=== PATIENT | female | born 1975 | race Caucasian/White ===

== ENCOUNTER 2019-05-23 16:54 | Inpatient (IN) | payer BC ==
[~2019-05-23] VITALS: Ht 160 cm; Wt 75.3 kg
[2019-05-23 17:08] VITALS: BP_SYST 101
--- NOTE | 2019-05-23 17:17 | NUR ---
Patient triaged and placed in waiting room. VSS and patient appears in no acute distress at this time. Accompanied by , awaiting available bed, and MD notified of need for MSE.
--- NOTE | 2019-05-23 21:08 | NUR ---
Patient to ER CHAIR to gown for evaluation. Side rails up. Report given to SINAN HICKEY.
--- NOTE | 2019-05-23 21:10 | NUR ---
Patient complains of left breast pain since March and has seen her OBGYN for it and was prescribed antibiotics but none seem to work. Pt complains that anish is still in pain and the last two days she has "noticed white creamy discharge." Pt also states she had a fever yesterday and this morning. Pt also complains of low back pain and bilateral heel pain. NO other injuries/complaints per patient or noted.
--- NOTE | 2019-05-23 21:22 | NUR ---
ER Dr. Barnes at bedside examining patient.
[2019-05-23] MEDS ORDERED: KETOROLAC TROMETHAMINE 30 MG VIAL IVP ONE (21:30)
--- NOTE | 2019-05-23 21:38 | NUR ---
Per Dr. Barnes, hold Toradol.
--- NOTE | 2019-05-23 21:43 | NUR ---
Patient was moved to Bed 8. Gowned and side rails up.
[2019-05-23 21:47] LABS: BILIRUBIN,URINE NEGATIVE (NEGATIVE); COLOR,URINE YELLOW (YELLOW); GLUCOSE,URINE NEGATIVE (NEGATIVE); KETONES,URINE NEGATIVE (NEGATIVE); LEUKOCYTE ESTERASE ,URINE TRACE (NEGATIVE); NITRITE, URINE NEGATIVE (NEGATIVE); PROTEIN URINE NEGATIVE (NEGATIVE); UROBILINOGEN,URINE 0.2 (0.2-1.0)
[2019-05-23 21:59] LABS: BLOOD, URINE TRACE (NEGATIVE); CLARITY/URINE SLIGHTLY HAZY (CLEAR)
[2019-05-23 21:59] LABS: BASOPHILS # (AUTO) 0.1 K/uL (0.0-0.2); BASOPHILS % (AUTO) 0.5 % (0.0-2.0); EOSINOPHILS # (AUTO) 0.2 K/uL (0.0-0.4); EOSINOPHILS % (AUTO) 1.3 % (0.0-4.0); HEMATOCRIT 37.3 % (36-48); HEMOGLOBIN 12.1 g/dL (12.0-16.0); LYMPHOCYTES # (AUTO) 2.8 K/uL (1.0-5.5); LYMPHOCYTES % (AUTO) 18.8 % (20.5-51.5); MEAN CORPUSCULAR HEMOGLOBIN 27 pg (27-31); MEAN CORPUSCULAR HGB CONC 33 % (32-36); MEAN CORPUSCULAR VOLUME 82 fL (79.0-98.0); MONOCYTES # (AUTO) 1.2 K/uL (0.0-1.0); MONOCYTES % (AUTO) 7.8 % (1.7-9.3); NEUTROPHILS # (AUTO) 10.7 K/uL (1.8-7.7); NEUTROPHILS % (AUTO) 71.6 % (40.0-70.0); PLATELET COUNT (AUTO) 365 K/uL (130-430); RED BLOOD CELL COUNT(AUTO) 4.54 MIL/uL (4.2-6.2); RED CELL DISTRIBUTION WIDTH 13.7 % (9.0-15.0)
[2019-05-23 22:04] LABS: BACTERIA,URINE FEW /HPF (None Seen); RBC,URINE 0-3 /HPF (0-3)
[2019-05-23 22:05] LABS: MUCUS,URINE 2+ /LPF (None Seen)
[2019-05-23 22:14] LABS: CALCIUM 8.7 mg/dL (8.4-11.0); CREATININE 0.61 mg/dL (0.55-1.30); POTASSIUM 3.8 mmol/L (3.5-5.1)
--- NOTE | 2019-05-23 22:24 | NUR ---
Dr. Hdz at bedside with Deangelo Russell as general ii farmworker.
[2019-05-23 22:40] LABS: ALBUMIN 3.4 g/dL (3.4-4.8); TOTAL BILIRUBIN 0.6 mg/dL (0.0-1.0)
[2019-05-23] MEDS ORDERED: metroNIDAZOLE 500 mg/NS 100 ML IV ONE (23:15)
[2019-05-23] MEDS ORDERED: PIPERACILLIN/TAZO 3.375 GM in NS 50 ML IV ONE (23:15)
[2019-05-23] MEDS ORDERED: PIPERACILLIN/TAZOBACTAM 3.375 GM/VIAL (ZOSYN) IV ONE (23:30)
[2019-05-23] MEDS ORDERED: CLIN300C11 PO (23:42)
[2019-05-23] MEDS ORDERED: METR500T PO (23:42)
--- NOTE | 2019-05-23 23:42 | NUR ---
Medication reconciliation completed with information provided by patient at bedside. Any prior medication reconciliation on file was reviewed and corrected.
--- NOTE | 2019-05-23 23:46 | NUR ---
Patient went to Ultrasound in stable condition.
--- NOTE | 2019-05-24 00:21 | NUR ---
Patient returned from Ultrasound in stable condition.
--- NOTE | 2019-05-24 00:50 | NUR ---
Note marcia in ED - 05/24/19 at 0050 by [email or web address] Re-checked Blood pressure: 124/79. Dr. Hdz made aware.
--- NOTE | 2019-05-24 01:44 | NUR ---
ER Dr. Hdz at bedside explaining results to patient/family.
--- NOTE | 2019-05-24 01:47 | NUR ---
ER Dr. Hdz speaking with Dr. Martin for admission.
--- NOTE | 2019-05-24 02:20 | NUR ---
Patient resting comfortably in bed. No acute distress, will continue to monitor.
--- NOTE | 2019-05-24 04:03 | NUR ---
Patient will be admitted to care of Dr. Douglas Monique. Admitted to MED SURG observation unit. Will go to room 125 B. Belongings list completed. Complete and up to date summary report printed. SBAR report to be given at bedside with opportunity for questions.
--- NOTE | 2019-05-24 04:03 | NUR ---
Transfer to [facility]. IV present no sign or symptom of infiltration.
--- NOTE | 2019-05-24 04:12 | NUR ---
ADMISSION NOTE Received patient from ER via kishan, received report from SINAN HICKEY. Patient admitted with diagnosis of WITH MASTITIS. Patient oriented to hospital routine, call light, toileting and safety-patient verbalized understanding.
[2019-05-24 04:13] VITALS: BP_SYST 96
--- NOTE | 2019-05-24 04:59 | NUR ---
SEPSIS RISK. PAGING DR. MARICRUZ FRASER PATIENT'S HR IS 100, WBC 15.0. MEETS SEPSIS CRITERIA, WITH POSSIBLE SOURCE OF INFECTION FROM MASTITIS. PAGING DR MARICRUZ FRASER. SPOKE WITH PETRA. AWAITING FOR CALL BACK.
--- NOTE | 2019-05-24 06:17 | NUR ---
DR MARICRUZ FRASER AT THE NURSES STATION. INFORMED HIM THAT THE PATIENT MEETS SEPSIS RISK. DR FRASER ORDERED LACTIC ACIDS TO BE DRAWN STAT. DR FRASER DOES NOT WANT TO START FLUID AT THIS TIME, STATING THAT IF THE LACTIC ACID IS NORMAL, THE PATIENT WILL LIKELY GO HOME AFTER RECEIVING THE NEXT DOSE OF ANTIBIOTICS.
--- NOTE | 2019-05-24 06:25 | NUR ---
PATIENT RESTING COMFORTABLY IN BED. AAOX4, NO SOB, NO ACUTE DISTRESS, NO SIGNS OF PAIN OR FACIAL GRIMACING NOTED. BED IS LOCKED, LOWEST POSITION, 2X SIDE RAILS UP, REFUSES BED ALARM AT THIS TIME. CALL LIGHT IS WITHIN REACH. ENCOURAGED PATIENT TO CALL FOR ASSISTANCE. WILL ENDORSE CARE TO ONCOMING DAYSHIFT NURSE.
--- NOTE | 2019-05-24 06:47 | NUR ---
DR MARICRUZ FRASER CONTACT INFO DR MARICRUZ FRASER STATES THAT HIS PAGER IS NO LONGER IN SERVICE, AND STATES TO CONTACT HIM THROUGH HIS PERSONAL CELL PHONE [phone].
--- NOTE | 2019-05-24 07:11 | NUR ---
opening note report was endorsed by night nurse. patient is awake and alert, currently having blood work drawn by sap bw developer. patient educated national sales trainer light, call light is with her.patient has no complaints at this time. will continue to monitor.
[2019-05-24 07:54] VITALS: BP_SYST 104
[2019-05-24] MEDS ORDERED: metroNIDAZOLE 500 mg/NS 100 ML IV ONE (09:00)
[2019-05-24] MEDS ORDERED: PIPERACILLIN/TAZO 3.375 GM in NS 50 ML IV ONE (09:00)
--- NOTE | 2019-05-24 09:30 | NUR ---
DR. FRASER SPOKE WITH , NO NEED TO DO SECOND LACTIC DUE TO FIRST ONE BEING NEGATIVE. RECEIVED ORDERS FOR CONSULT CORBISERO. PATIENT MADE AWARE.
--- NOTE | 2019-05-24 09:35 | NUR ---
CONSULTATION PAGED/CALLED Reason for Consultation: [] MASTITIS Person Who was Notified: [] YAHIR Consulting Physician: [] DR BIRMINGHAM Carton Waxing Machine Operator Specialty: [] GEN SURGEON Ordering Physician: [] MARICRUZ ANGULO
--- NOTE | 2019-05-24 09:59 | NUR ---
CONSULTATION PAGED/CALLED Reason for Consultation: [] MASTITIS Person Who was Notified: [] TANESHA Consulting Physician: [] DR BANKS Aircraft Electrician Specialty: [] ID Ordering Physician: [] DR BIRMINGHAM
--- NOTE | 2019-05-24 10:00 | NUR ---
DR. STALLWORTH SPOKE WITH MD ON PHONE, ORDERS RECEIVED FOR CONSULT FOR INFECTIOUS DISEASE. MD STATES HE IS IN THE OFFICE WILL COME TO SEE PATIENT LATER TODAY. MD ASKING IF DISCHARGE NO DISCHARGE PER PATIENT. PATIENTS SCHEDULED MEDICATION GIVEN PER ORDER. PATIENT HAS CALL LIGHT WITH HER, EDUCATED TO USE FOR ASSISTANCE. PATIENT HAS NO COMPLAINTS AT THIS TIME. WILL CONTINUE TO MONITOR.
--- NOTE | 2019-05-24 11:00 | NUR ---
DR. SETHI AT NURSES STATION. STATES WILL LIKE A PHONE CALL WITH UPDATED WBC AND PROLACTIN. SAW PATIENT. PATIENT HAS NO OTHER NEEDS AT THIS TIME.
[2019-05-24 12:31] VITALS: BP_SYST 97
--- NOTE | 2019-05-24 13:00 | NUR ---
RN ROUNDING PATIENT IS AWAKE AND ALERT SITTING UP IN BED, NO COMPLAINTS AT THIS TIME. CALL LIGHT IS WITH HER .EDUCATED TO USE FOR ASSISTANCE. WILL CONTINUE TO MONITOR.
--- NOTE | 2019-05-24 15:00 | NUR ---
MEDICATION PATIENTS SCHEDULED MEDICATION GIVEN PER ORDER. PATIENT IS WONDERING WHERE SHE CAN RECEIVE IV ANTIBIOTICS THAT IS IN NETWORK. LEFT MESSAGE WITH CASE MANAGEMENT FOR INFORMATION ON [facility]. PATIENT MADE AWARE , WAITING FOR CALL BACK. PATIENT HAS CALL LIGHT WITH EDUCATED TO USE CALL LIGHT FOR ASSISTANCE. NO OTHER COMPLAINTS AT THIS TIME.
[2019-05-24] MEDS: PIPERACILLIN/TAZO 4.5GM/DEX-IS 100 ML IV SCH ×2 (15:12→21:59)
[2019-05-24 16:20] VITALS: BP_SYST 102
[2019-05-24] MEDS ORDERED: LIDOCAINE/EPI 1% 1:100000 20 ML VIAL INJ ONE (16:45)
--- NOTE | 2019-05-24 17:15 | NUR ---
DC PLANNING CALLED [facility] FOR INPT SERVICES. REQUESTED CALL PRIMARY ATTENDING FOR INPT ORDER.
--- NOTE | 2019-05-24 18:15 | NUR ---
DR.LEE SON FOR ADMIT ORDERS.
--- NOTE | 2019-05-24 18:46 | NUR ---
RN CLOSING NOTE PATIENT IS AWAKE AND ALERT SITTING UP IN BED. DR. STALLWORTH SAW PATIENT NO ASPIRATION OR i & d DONE,CONTINUE WITH IV ANTIBIOTICS PRESCRIBED BY INFECTIOUS DISEASE. PATIENT IS AWARE OF PLAN OF CARE WITH NO FURTHER QUESTIONS. SPOKE WITH DR. SETHI INFORMED OF PROLACTIN, WAITING FOR WBC TO BE DONE. PLEAS CALL WITH RESULTS. PER DR. SETHI RECOMMENDS PATIENT TO STAY THE NIGHT AND RECEIVED IV ANTIBIOTICS. PAGED DR. FRASER FOR ADMISSION ORDERS.
--- NOTE | 2019-05-24 19:02 | NUR ---
Douglas José Dr. s/ariella Ayala
--- NOTE | 2019-05-24 19:30 | NUR ---
OPENING NOTE Received patient awake, resting in bed, no s/sx of distress. Nonlabored breathing on room air. Presently reports episodes of diarrhea, which was also endorsed by RUPERTO Baxter. IV is SL RFA. Bed is locked in lowest position, side rails up 2x, and call light w/in reach. Updated board and reviewed plan of care.
[2019-05-24 19:42] LABS: BASOPHILS # (AUTO) 0.1 K/uL (0.0-0.2); BASOPHILS % (AUTO) 0.6 % (0.0-2.0); EOSINOPHILS # (AUTO) 0.1 K/uL (0.0-0.4); EOSINOPHILS % (AUTO) 0.7 % (0.0-4.0); HEMATOCRIT 34.9 % (36-48); HEMOGLOBIN 11.3 g/dL (12.0-16.0); LYMPHOCYTES # (AUTO) 1.8 K/uL (1.0-5.5); LYMPHOCYTES % (AUTO) 12.5 % (20.5-51.5); MEAN CORPUSCULAR HEMOGLOBIN 27 pg (27-31); MEAN CORPUSCULAR HGB CONC 32 % (32-36); MEAN CORPUSCULAR VOLUME 82 fL (79.0-98.0); MONOCYTES # (AUTO) 0.9 K/uL (0.0-1.0); MONOCYTES % (AUTO) 6.4 % (1.7-9.3); NEUTROPHILS # (AUTO) 11.6 K/uL (1.8-7.7); NEUTROPHILS % (AUTO) 79.8 % (40.0-70.0); PLATELET COUNT (AUTO) 327 K/uL (130-430); RED BLOOD CELL COUNT(AUTO) 4.24 MIL/uL (4.2-6.2); RED CELL DISTRIBUTION WIDTH 13.7 % (9.0-15.0); WHITE BLOOD COUNT (AUTO) 14.6 K/uL (4.8-10.8)
[2019-05-24 20:00] VITALS: BP_SYST 105
[2019-05-24 20:00] LABS: CALCIUM 8.2 mg/dL (8.4-11.0); CREATININE 0.75 mg/dL (0.55-1.30); POTASSIUM 3.4 mmol/L (3.5-5.1)
[2019-05-24 20:20] LABS: ALBUMIN 2.9 g/dL (3.4-4.8); TOTAL BILIRUBIN 0.5 mg/dL (0.0-1.0)
--- NOTE | 2019-05-24 21:12 | NUR ---
Dr. Perez Paged and spoke with Dr. Perez and read WBC results; Informed WBC 14.6 which is decreased from 15.0 on prior test. I also informed Dr. Sheba Monique has a discharge order for patient to go home in AM and he said he will see the patient in AM and review antibiotics.
--- NOTE | 2019-05-24 22:10 | NUR ---
Dr. Lina Monique s/w Dr. Sheba Monique. Dr. Sheba Monique was informed that patient is experiencing diarrhea and he questioned why she was here. He said she was cleared by surgeon and can go home.; patient can discharge home tonight. I informed him patient said it will not be possible. is at home with child and she will be able to discharge in morning after breakfast. Dr Sheba Monique said ok to discharge in AM. He gave medication order for Lomitil one time.
[2019-05-24] MEDS ORDERED: DIPHENOXYLATE HCL/ATROP SULF 2.5 MG TAB PO ONE (22:15)
[2019-05-24 23:03] VITALS: BP_SYST 96
--- NOTE | 2019-05-24 23:06 | NUR ---
RN rounds IV antibiotic infusion done and patient was place saline lock. Administered Lomitil for diarrhea per patient request and as ordered. Presently OOB to restroom and brushing teeth. She requested ice water and it was provided. No further needs. Will continue to monitor.
--- NOTE | 2019-05-25 02:05 | NUR ---
RN rounds Patient sleeping, no s/sx of distress. Symmetrical rise and fall of chest. Call light w/in reach.
--- NOTE | 2019-05-25 04:05 | NUR ---
RN rounds Patient resting in bed, awake. No s/sx of distress and states she has no further needs.
[2019-05-25] MEDS: PIPERACILLIN/TAZO 4.5GM/DEX-IS 100 ML IV SCH ×3 (06:25→13:57)
--- NOTE | 2019-05-25 06:31 | NUR ---
Antibiotic Due antibiotic, Zosyn, was hung. Infusing well and patient tolerating. Patient ambulated to restroom and returned to bed.
--- NOTE | 2019-05-25 07:18 | NUR ---
CLOSING NOTE Patient resting in comfortable position, no s/sx of distress, nonlabored breathing. Needs met throughout shift, will endorse care to incoming day shift nurse.
[2019-05-25 08:00] VITALS: BP_SYST 91
--- NOTE | 2019-05-25 08:00 | NUR ---
initial notes rec patient awake alert and eating breakfast. ivl on the r forearm intact. no infiltration noted. resp easy and unlabored. no sob noted. call light withn reached and knows when to call for assistance. awaiting for dr leia boland order prior to d/c. call light within reached.
--- NOTE | 2019-05-25 09:01 | NUR ---
PAGED PAGED MADAY FRANCO AT [phone] SPOKE WITH TANESHA.
[2019-05-25 10:24] VITALS: BP_SYST 91
--- NOTE | 2019-05-25 11:00 | NUR ---
rounds speak with dr dupree and relayed the result of the wbc. stated okay to go home and will start iv abx thearpy for 7 days at the infusion clinic. dr anahi thomas was called as well and said okay to go home.
[2019-05-25 11:06] LABS: BASOPHILS # (AUTO) 0.1 K/uL (0.0-0.2); BASOPHILS % (AUTO) 0.6 % (0.0-2.0); EOSINOPHILS # (AUTO) 0.1 K/uL (0.0-0.4); EOSINOPHILS % (AUTO) 0.7 % (0.0-4.0); HEMATOCRIT 37.2 % (36-48); LYMPHOCYTES # (AUTO) 1.9 K/uL (1.0-5.5); LYMPHOCYTES % (AUTO) 13.4 % (20.5-51.5); MEAN CORPUSCULAR HEMOGLOBIN 27 pg (27-31); MEAN CORPUSCULAR HGB CONC 32 % (32-36); MEAN CORPUSCULAR VOLUME 83 fL (79.0-98.0); MONOCYTES # (AUTO) 1.2 K/uL (0.0-1.0); MONOCYTES % (AUTO) 8.6 % (1.7-9.3); NEUTROPHILS # (AUTO) 11.1 K/uL (1.8-7.7); NEUTROPHILS % (AUTO) 76.7 % (40.0-70.0); PLATELET COUNT (AUTO) 330 K/uL (130-430); RED CELL DISTRIBUTION WIDTH 13.8 % (9.0-15.0); WHITE BLOOD COUNT (AUTO) 14.5 K/uL (4.8-10.8)
[2019-05-25 12:05] VITALS: BP_SYST 102
--- NOTE | 2019-05-25 12:11 | NUR ---
PAGED PAGED MARICRUZ FLORES AT [phone] SPOKE WITH FINANCIAL MARKET DEALER.
--- NOTE | 2019-05-25 15:25 | NUR ---
closing notes pt was discahrged, was picked up by . id band was removed. instructed to continue taking her prescription flagyl as per dr dupree. pt was instructed also bu dr dupree to go to the infusion center for abx thearpy for [address] dupree as stated by him. was sent home with ivl on the r forearm # 22 and was wrapped with a ryann.no sob noted. stable and needs attended. was whelled by kirti via wheelchair.
[2019-05-25 16:12] VITALS: BP_SYST 103
== END 2019-05-25 15:25 | disposition home or self-care (01) | DRG 833 ==
LOC: SED 16:54 → OBSVTOIN 05-24 03:39 → SMU 05-24 03:39
PROVIDERS: ADMIT Obstetrics & Gynecology; ATTEND Obstetrics & Gynecology
DX: O9A.111 Malignant neoplasm complicating pregnancy, first trimester (principal); O91.211 Nonpurulent mastitis associated with pregnancy, first trimester; O91.111 Abscess of breast associated with pregnancy, first trimester; C50.912 Malignant neoplasm of unspecified site of left female breast; Z79.899 Other long term (current) drug therapy; Z79.2 Long term (current) use of antibiotics
CPT/HCPCS: 36415; 76642; 76801; 76817; 80053; 81000-TC; 81025; 83605; 84702-TC; 85025; 86710; 86901; 87040-TC; 87081; 87086; 96365; 99285; J2543; J3490